=== PATIENT | male | born 1960 | race Caucasian/White ===

== ENCOUNTER 2016-11-06 11:07 | Emergency (ER) | payer OTHER, MEDICAID ==
[~2016-11-06] VITALS: Ht 177.8 cm; Wt 113.4 kg
--- NOTE | 2016-11-06 11:12 | NUR ---
[id number]: SI, PT CLAIMES TAKING TRAZADONE 100MG PO x 20 [employer] [facility] [employer]. PATIENT IS AAO3. APPEARS IN NO APPARENT DISTRESS. RESPIRATION EVEN AND UNLABORED. SKIN IS WARM TO TOUCH AND NON DIAPHORETIC. SATING WELL ON ROOM AIR. PT PLACED ON O2 VIA NC FOR PRECAUTION. GOWNED PT.PENDING MD CARVER
[2016-11-06 11:30] LABS: BASOPHILS % (AUTO) 0.7 % (0.0-2.0); EOSINOPHILS # (AUTO) 0.1 /CMM (0.0-0.7); EOSINOPHILS % (AUTO) 2.3 % (0.0-6.0); HEMATOCRIT 43 % (39-51); HEMOGLOBIN 14.7 g/dL (13.5-17.5); LYMPHOCYTES # (AUTO) 1.4 /CMM (0.8-4.8); LYMPHOCYTES % (AUTO) 34.6 % (20.0-44.0); MEAN CORPUSCULAR HEMOGLOBIN 34 PG (26.0-33.0); MEAN CORPUSCULAR HGB CONC 34 g/dl (31.0-36.0); MEAN CORPUSCULAR VOLUME 99 fL (80-96); MONOCYTES # (AUTO) 0.4 /CMM (0.1-1.30); NEUTROPHILS # (AUTO) 2.1 /CMM (1.8-8.9); NEUTROPHILS % (AUTO) 52.4 % (43.0-81.0); PLATELET COUNT (AUTO) 80 /CMM (150-450); RDW COEFFICIENT OF VARIATION 12.4 (11.5-15.0); RED BLOOD CELL COUNT(AUTO) 4.31 MIL/uL (4.5-6.0)
[2016-11-06 11:43] LABS: ACETAMINOPHEN 0 ug/ml (10-30); ALANINE AMINOTRANSFERASE 47 U/L (12-78); ALBUMIN 3.4 g/dL (3.4-5.0); ALCOHOL, BLOOD < 3 mg/dL (0-0); ALKALINE PHOSPHATASE 110 U/L (46-116); ASPARTATE AMINOTRANSFERASE 49 U/L (15-37); BILIRUBIN,DIRECT 0.3 mg/dL (0.0-0.2); CALCIUM, SERUM 8.1 mg/dL (8.5-10.1); CARBON DIOXIDE 23 mmol/L (21-32); CHLORIDE 107 mmol/L (98-107); CREATININE 1.1 mg/dL (0.6-1.3); GLUCOSE 161 mg/dL (74-106); SODIUM SERUM 142 mmol/L (136-145); TOTAL PROTEIN, SERUM 7.4 g/dL (6.4-8.2); UREA NITROGEN, BLOOD 9 mg/dL (7-18)
[2016-11-06 11:44] LABS: POTASSIUM 2.8 mmol/L (3.5-5.1); SALICYLATE < 2.8 mg/dL (2.8-20.0)
[2016-11-06] MEDS ORDERED: IV PREMIX 0.45% NS + KCL 1,000 ML IV ONE (11:49)
[2016-11-06] MEDS ORDERED: Magnesium 1GM/D5W 100ML PREMIX 100 ML IV ONE ×2 (11:49→11:58)
--- NOTE | 2016-11-06 12:14 | NUR ---
PER OKAY TO WAIT FOR URINE
[2016-11-06 12:35] LABS: BAND % (MANUAL) 1 % (0.0-5.0); LYMPHOCYTES % (MANUAL) 31 % (16-48); MONOCYTES % (MANUAL) 7 % (0-11.0); NEUTROPHILS % (MANUAL) 61 (42-76)
[2016-11-06] MEDS ORDERED: TRAZ-147 PO (12:40)
[2016-11-06] MEDS ORDERED: POTASSIUM CHLORIDE 20 MEQ TAB.PRT.SR PO ONE ×2 (13:30→13:33)
[2016-11-06 13:38] LABS: APPEARANCE,URINE Clear (CLEAR); BILIRUBIN,URINE SMALL (NEGATIVE); BLOOD, URINE Negative Ery/uL (NEGATIVE); COLOR,URINE Yellow (YELLOW); KETONES,URINE Negative (NEGATIVE); LEUKOCYTE ESTERASE ,URINE Negative (NEGATIVE); NITRITE, URINE Negative (NEGATIVE); PH,URINE 5.5 (5.0-8.0); PROTEIN,URINE Trace mg/dl (NEGATIVE); UGLUCOSE 500 MG/DL mg/dL (NEGATIVE); UROBILINOGEN,URINE >=8.0 EU/dL (0.2)
[2016-11-06 13:42] LABS: BACTERIA,URINE Rare /HPF (None Seen); RBC,URINE 0-2 /HPF (0-2); SQUAMOUS EPITHELIAL CELL,UR Few /HPF (None Seen); WBC,URINE 0-2 /HPF (0-3)
--- NOTE | 2016-11-06 14:09 | NUR ---
CALLED [facility]INICIAN FOR EVAL. ETA 1 HOUR
[2016-11-06 14:36] LABS: CALCIUM, SERUM 8.3 mg/dL (8.5-10.1); POTASSIUM 3.8 mmol/L (3.5-5.1)
--- NOTE | 2016-11-06 14:52 | NUR ---
[facility] RN AT BEDSIDE FOR EVAL
--- NOTE | 2016-11-06 17:23 | NUR ---
PT ACCEPTED AT [facility]. REPORT TO [phone].
--- NOTE | 2016-11-06 17:52 | NUR ---
CALLED [facility] FOR S TRANSPORT TO [facility]. ETA [phone]
--- NOTE | 2016-11-06 18:00 | NUR ---
Patient is resting comfortably in bed with eyes closed. Easily aroused. VSS
[2016-11-06 19:44] VITALS: BP 110/70
--- NOTE | 2016-11-06 19:45 | NUR ---
PATIENT TRANSPORTED TO [facility] FOR VOLUNTARY ADMISSION
== END 2016-11-06 19:46 | disposition home or self-care (01) ==
LOC: ER 11:08
DX: T42.71XA Poisoning by unspecified antiepileptic and sedative-hypnotic drugs, accidental (unintentional), initial encounter (principal); R79.89 Other specified abnormal findings of blood chemistry; E87.6 Hypokalemia; R74.0 Nonspecific elevation of levels of transaminase and lactic acid dehydrogenase [LDH]; Y92.89 Other specified places as the place of occurrence of the external cause
CPT/HCPCS: 36415; 80048 ×2; 80076; 80305; 80329; 81001; 82962; 85025; 87081; 93005; 96365; 96366; 96368; 99291; A4606; G0480 ×2; J3475; Z7610; 81000-TC